=== PATIENT | male | born 1960 | race Caucasian/White ===

== ENCOUNTER 2016-12-10 12:41 | Day surgery (SDC) | payer OTHER ==
[~2016-12-10] VITALS: Ht 180.3 cm; Wt 90.2 kg
--- NOTE | 2016-12-10 07:29 | PCM.HPANE ---
Patient Data Surgeon Admitting Provider: Attending Provider:Fransico Sprague MD Primary Care Physician:Abby Pedraza PA-C Other Provider:Vick Munoz Anesthesia Reason for Visit Rectal Bleeding Ht/WT & BMI Body Mass Index Allergies Coded Allergies: hydrocodone (Verified Allergy, Severe, FACIAL SWELLING AND ITCHING, ) Penicillins (Verified Allergy, Unknown, 07/24/16) Sulfa (Sulfonamide Antibiotics) (Verified Allergy, Unknown, 07/24/16) Past Anesthesia History Anesthesia History: Denies:: Abnormal Airway, Anesthesia Reactions, Difficult Intubation, Fam Anesthesia Reaction, Fam Malignant Hypertherm, Malignant Hyperthermia Diabetes History Hx Diabetes?: No MRSA MRSA: No Medications Blood Thinner: Aspirin Reported Medications Ranitidine 150 Mg Kpblkhl017 Mg PO BID Ref 0 12/08/16 Esomeprazole Magnesium (Nexium)40 Mg Capsule.dr40 Mg PO DAILY Ref 0 12/08/16 Polyethylene Glycol 3350 (Miralax)17 Gm Powd.pack17 Gm PO DAILY 12/08/16 Albuterol HFA (Proair HFA)8.5 Gm Hfa.aer.ad2 Puffs INHALATION Q4H PRN For Shortness of Breath #1 INHALER 07/24/16 Potassium Chloride ER 20 Meq Tablet.er20 Meq PO DAILY Ref 0 TAKE WITH FOOD 07/24/16 Metoprolol Succinate ER 50 Mg Tab.er.24h50 Mg PO DAILY Ref 0 07/24/16 Lisinopril 5 Mg Tablet5 Mg PO HS #30 TABLET Ref 0 07/24/16 Furosemide (Lasix)40 Mg Yfjvdj22 Mg PO BID 30 Days Ref 0 07/24/16 Fluticasone Propionate (Flovent HFA 110 mcg)12 Gm Aer.w.adap1 Puff IH BID #12 GM Ref 0 07/24/16 Albuterol Neb Soln 2.5 Mg/3 Ml Vial.neb2.5 Mg INHALATION BID Ref 0 07/24/16 Discontinued Reported Medications Spironolactone 25 Mg Zrhqrp56 Mg PO DAILY #30 TABLET Ref 0 07/28/16 Nicotine 14 mg/24 hr Patch 1 Each Patch.td241 Patch TRANSDERM DAILY Ref 0 07/24/16 Aspirin 325 Mg Xkdhwx255 Mg PO DAILY #1 BOTTLE 07/24/16 History HEENT History: Positive for:: Dysphagia Hearing Problem (MILD HABEMATOLEL L>R) Denies:: Abnormal Airway Difficult Intubation Hx of Heart Problems?: Yes Cardiovascular History: Positive for:: Chest Pain Congestive Heart Failure Hypertension Denies:: AICD Atrial Fibrillation Pacemaker Valvular Heart Disease Other Cardiac History: did not take any meds rfor last 2 days. Has been counselled not ot change meds without drs orders Hx of Respiratory Problem?: Yes Respiratory History: Positive for:: COPD Pneumonia Denies:: Asthma Cough Hemoptysis Tuberculosis Neurological History: Denies:: CVA Hx of GI Problems?: Yes Gastrointestinal History: Positive for:: Cirrhosis Gastroesphageal Reflux Denies:: Diverticulitis Hiatal Hernia Rectal Bleeding Musculoskeletal History: Denies:: Joint Replacement Psycho Social History: Denies:: Anxiety Hx Depression Hx Surgeries?: Yes (TONSILLECTOMY, RSHOULD, LAP MARY ANN) Hx Any Other Health Problems?: Yes Hx Diabetes: No Hx Alcohol Use: NoHx Substance Use: Yes Smoking Status: Light Tobacco Smoker Have You Smoked inLast 12 mo: Yes Stop/Bang Risk Assessment Category Category 1A: Patient has history of documented sleep apnea, and HAS NOT received any narcotic, sedative or anesthesia administration during this stay. Category 1B: Patient has history of documented sleep apnea, and HAS received any narcotic , sedative or anesthesia administration during this stay Category 2: Patient has SUSPECTED Obstructive Sleep Apnea, and HAS received any narcotic , sedative or anesthesia administration during this stay. Category 3: Patient has SUSPECTED Obstructive Sleep Apnea and HAS NOT received narcotic, sedative or anesthesia administration during this stay. Category 4: Outpatient in Procedural Areas with known sleep apnea or who screen positive for High Risk via the STOP/BANG questionnaire. Exam Exam General Appearance: Alert, Oriented X3, Cooperative, No Acute Distress HEENT/AIRWAY: MP 2 Lungs: Clear to Auscultation, Normal Air Movement Heart: Exam Unremarkable, Regular Rate/Rhythm, No Murmurs/Rubs/Gallops Plan Impression Patient chart reviewed, patient interviewed and anesthestic plan with risks, benefits, and alternatives discussed, and informed consent obtained. ASA Physical Status: ASA3 Severe Disease Anesthetic Plan: MAC Bene/Risks/Altern/Consents: Yes HP Complete Prior to Induction: Yes Ethan Mendiola MD Dec 10, 2016 07:29
[~2016-12-10 12:41] MED LIST: ALBU2.5V4 INHALATION; ALBU8.5H2 INHALATION; ESOM40CA41 PO; FLUT12AE8 IH; FURO-128 PO; LISI-571 PO; Lactated Ringer's 1,000 ML IV ONE; METO-272 PO; POLY17PO6 PO; POTA-62 PO; RANI150C4 PO
[2016-12-10] MEDS ORDERED: fentaNYL-PF 50 mCg/mL 2 mL Inj ONE (12:42)
[2016-12-10] MEDS ORDERED: Propofol 10,000 mCg/mL 20 mL Inj ONE (12:42)
[2016-12-10 12:54] VITALS: BP 113/77; PULSE 86; RESP 16; O2SAT 97
[2016-12-10] MEDS ORDERED: Lactated Ringer's 1,000 ML IV SCH (13:30)
[2016-12-10] MEDS ORDERED: Ondansetron 2 mg/mL 2 mL Inj IVPUSH PRN (13:30)
[2016-12-10] MEDS ORDERED: MetoCLOpramide 5 mg/mL 2 mL Inj IVPUSH PRN (13:30)
--- NOTE | 2016-12-10 13:30 | PCM.ANEP2 ---
Post Anesthesia Evaluation ASA/CMS Post Anesthesia VS in Patient's Normal Range?: Yes Resp Stable; Airway Patent?: Yes CV Function & Hydration Stable: Yes Mental Status Recovered?: Yes Pain control Satisfactory?: Yes N/V Control Satisfactory?: Yes Ethan Mendiola MD Dec 10, 2016 13:30
--- NOTE | 2016-12-10 13:30 | PCM.ANEP1 ---
Post Anesthesia Phase 1 PACU Phase 1 Assessment Vital Signs Vital Signs Date Time Temp Pulse Resp B/P Pulse Ox O2 Delivery O2 Flow Rate FiO2 12/10/16 12:54 36.6 86 16 113/77 97 Room Air Anesthetic Administered: MAC Level of Alertness: Awake, talking ASTORGA's with Equal Strength: Yes Pain: No Nausea or Vomiting: No Oxygen Delivery: Nasal Cannula Lungs: Clear to Auscultation, Normal Air Movement Ethan Mendiola MD Dec 10, 2016 13:30
[2016-12-10 13:35] VITALS: BP 96/63; PULSE 76; RESP 16; O2SAT 95
[2016-12-10 13:43] VITALS: BP 84/62; PULSE 83; RESP 10; O2SAT 96
[2016-12-10 13:54] VITALS: BP 112/51; PULSE 78; RESP 16; O2SAT 98
--- NOTE | 2016-12-10 14:28 | ENDO ---
[address] [address] ENDOSCOPY PROCEDURE PATIENT: VALE DEGROOT : 1960 MR#: [id number] ADMIT: 12/10/2016 JOB ID: [id number] DATE OF SERVICE: 12/10/2016 TYPE OF OPERATION: Colonoscopy with biopsy. PREOPERATIVE DIAGNOSIS: Rectal bleeding. POSTOPERATIVE DIAGNOSES: 1. Loss of architecture and vascularity with ulcerations from 90 cm from the rectum into splenic flexure down to the rectum concerning for ulcerative colitis, status post biopsy. 2. The rest of the colon and terminal were normal. ANESTHESIA: Monitored anesthesia care. COMPLICATIONS: None. BLOOD LOSS: Minimal. DESCRIPTION OF PROCEDURE: After risks and benefits were explained to the patient, informed consent was obtained. After anesthesia administered, colonoscope was then inserted per rectum to terminal ileum, and mucosa carefully examined. Prep of the patient was excellent. After procedure was done, the scope was withdrawn and procedure terminated. FINDINGS: Upon inspection of the anus, no masses, hemorrhoids, ulcers, or fissures that were seen. Throughout the entire examination, there were ulcerations and loss of architecture and vascularity from 90 cm from the anus to the rectum concerning for left-sided ulcerative colitis. The colon proximal to that was normal. Intubation in the terminal ileum was normal. Biopsies were taken from the terminal ileum and from 90 cm to the rectum to rule out IBD. Retroflexion was not performed due to active ulcerative colitis. IMPRESSIONS: Loss of architecture and vascularity from 90 cm to the rectum concerning for ulcerative colitis, status post biopsy. RECOMMENDATIONS: 1. 2.4 g by mouth once a day. 2. Rowasa 6 g per rectum q.h.s. 3. Follow up in GI Clinic in 4-8 weeks after starting the medications.
--- NOTE | 2016-12-11 14:42 | PATH ---
SURGICAL PATHOLOGY Attending Physician:Fransico Sprague MD CASE STATUS: Signed Out PATIENT NAME: VALE DEGROOT PID: [id number] : 1960 DATE COLLECTED:12/10/2016 19:07 SPECIMEN: 1: Ileum, Biopsy 2: Anus, Biopsy CLINICAL HISTORY: 1).TERMINAL ILEUM BIOPSY 2).INFLAMMATION AT 90CM FROM ANUS BIOPSY FINAL DIAGNOSIS: 1.TERMINAL ILEUM BIOPSY: FRAGMENTS OF NORMAL-APPEARING TERMINAL ILEUM MUCOSA. Negative for granulomas. Negative for significant inflammation, dysplasia and malignancy. 2.COLON BIOPSY AT 90 CM FROM THE ANUS: CHANGES OF CHRONIC ACTIVE COLITIS WITH FOCAL CRYPTITIS AND AREAS OF MUCOSAL SUPERFICIAL EROSION. ICD10 CODE K52.9 GROSS DESCRIPTION: The specimen is received in two formalin filled containers labeled with the patient's name. 1). The specimen is sublabeled "terminal ileum" and consists of 2 portions of tissue which aggregate to 0.3-0.3 x 0.2 CM. The specimen is entirely submitted in cassettes 1A. 2). The specimen is sublabeled "inflammation at 90 CM from anus" and consists of multiple portions of tissue which aggregate to 0.4 x 0.4 x 0.3 CM. The specimen is entirely submitted in cassette 2A. 12/10/2016 [facility] MICRO DESCRIPTION: See diagnosis. ICD-9 CODES: CPT CODES: 1: 79778 2: 76632 Electronically Signed Out Luis Ro MD [facility] Pathology [facility] [address], [place] [address] Technical component performed at [facility], [facility] [address], [address]
== END 2016-12-10 23:59 | disposition home or self-care (01) ==
LOC: END 12:41
PROVIDERS: ATTEND Internal Medicine Gastroenterology
DX: K29.50 Unspecified chronic gastritis without bleeding (principal); I50.9 Heart failure, unspecified; I10 Essential (primary) hypertension; K21.9 Gastro-esophageal reflux disease without esophagitis; J44.9 Chronic obstructive pulmonary disease, unspecified; J45.909 Unspecified asthma, uncomplicated; F15.90 Other stimulant use, unspecified, uncomplicated; F17.210 Nicotine dependence, cigarettes, uncomplicated; Z79.82 Long term (current) use of aspirin; Z87.442 Personal history of urinary calculi; Z79.1 Long term (current) use of non-steroidal anti-inflammatories (NSAID)
CPT/HCPCS: 45380; 88305; J2250; J3010; J7120